=== PATIENT | male | born 1985 | race African-American/Black ===

== ENCOUNTER 2016-12-05 20:58 | Emergency (ER) | payer OTHER ==
[~2016-12-05] VITALS: Ht 188 cm; Wt 81.6 kg
[2016-12-05 22:00] VITALS: BP 121/75
[2016-12-05] MEDS ORDERED: CYCLOBENZAPRINE10 MG ORAL (22:03)
[2016-12-05] MEDS ORDERED: IBUPROFEN800 MG ORAL (22:03)
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
--- NOTE | 2016-12-06 11:55 | Diagnostic Imaging Report ---
Indication: Back pain Comparison: None Findings: 3 views of the lumbar spine were obtained. No acute fracture or malalignment is identified. Vertebral body heights and disk spaces are well maintained. Posterior elements are unremarkable. Impression: No acute findings.
--- NOTE | 2016-12-06 11:56 | Diagnostic Imaging Report ---
Indication: Back pain Findings: 2 views of the thoracic spine were obtained. Normal bony mineralization and alignment are demonstrated. Vertebral body heights and intervertebral disc heights are normal. The posterior elements including the facets are unremarkable. Soft tissues are unremarkable. Impression: Negative thoracic spine series
== END 2016-12-05 22:00 | disposition home or self-care (01) ==
LOC: EMR 21:26
DX: M54.9 Dorsalgia, unspecified (principal); M54.2 Cervicalgia; V43.52XA Car driver injured in collision with other type car in traffic accident, initial encounter; Y92.410 Unspecified street and highway as the place of occurrence of the external cause; J45.909 Unspecified asthma, uncomplicated
CPT/HCPCS: 72020; 72070; 99284